=== PATIENT | male | born 1930 | race Caucasian/White ===

== ENCOUNTER 2017-02-15 22:35 | Observation (INO) | payer MEDICARE ==
[2017-02-15 23:02] LABS: #Eosinphils 0.7 thou/uL (0.0-0.7); #Lymphocytes 2.4 thou/uL (1.20-3.40); #Monocytes 0.6 thou/uL (0.11-0.59); #Neutrophils 2.6 thou/uL (1.40-6.50); %Basophils 0.3 % (0.0-1.0); %Eosinophils 11.3 % (0.0-10.0); %Lymphocytes 37.8 % (21.0-51.0); %Monocytes 9.4 % (0.0-10.0); Hematocrit 35.4 % (42.0-52.0); Mean Platelet Volume 7.8 fL (7.4-10.4); Red Blood Cell (RBC) Count 3.82 mill/uL (4.70-6.10); White Blood Cell (WBC) Count 6.3 thou/uL (4.8-10.8)
--- NOTE | 2017-02-15 23:13 | RAD ---
CHEST ONE VIEW: 02/15/17 HISTORY: Weakness. Syncope. COMPARISON: 09/21/15. FINDINGS: The cardiac silhouette is magnified by projection. Pulmonary vasculature is unremarkable. Mediastinu m is midline with aortic calcification and postoperative changes. There is no lobar consolidation or evidence of pneumothorax. The telemetry monitor leads overlie the chest. IMPRESSION: 1. COPD. 2. Atherosclerosis. 3. Chronic type findings appear stable. POS: [facility]
[2017-02-15 23:19] LABS: ALT (SGPT) 9 U/L (8-55); AST (SGOT) 16 U/L (5-34); Alkaline Phosphatase 89 U/L (40-150); Anion Gap 14 mmol/L (10-20); BUN (Urea Nitrogen) 27 mg/dL (8.4-25.7); Bilirubin, Total 0.8 mg/dL (0.2-1.2); Calc. Creatinine Clearance 0 mL/min (70-130); Calcium 9.2 mg/dL (7.8-10.44); Carbon Dioxide 24 mmol/L (23-31); Chloride 105 mmol/L (98-107); Estimated GFR-MDRD 47; Globulin 2.5 g/dL (2.4-3.5); Protein, Total 6.2 g/dL (5.8-8.1)
[2017-02-15 23:22] LABS: Troponin I 0.017 ng/mL (< 0.028)
[2017-02-16] MEDS ORDERED: Sodium Chloride 0.9% 1,000 ML IV SCH ×3 (01:04→23:30)
[2017-02-16 01:48] VITALS: BMI 19.1
[2017-02-16 02:34] LABS: Troponin I 0.028 ng/mL (< 0.028)
[2017-02-16 06:01] LABS: Troponin I 0.016 ng/mL (< 0.028)
[2017-02-16] MEDS: Ramipril 5 MG CAP PO SCH (09:39)
[2017-02-16] MEDS: traMADol HCl 50 MG TAB PO PRN (10:19)
--- NOTE | 2017-02-16 10:39 | RAD ---
RIGHT SHOULDER THREE VIEWS: History: Right shoulder pain. FINDINGS: There are moderate to severe degenerative changes at the right shoulder. Prominent osteophytes are s een from the humeral head. Mild loss of humeral head contour. There is narrowing of the glenohumeral joint. Osteophytes also arise from the glenoid. Inferior osteophytes are seen at the AC joint. No a cute fracture identified. 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 POS: [facility]
--- NOTE | 2017-02-16 12:36 | HP ---
REASON FOR ADMISSION: Syncope. HISTORY OF PRESENT ILLNESS: An 86-year-old gentleman who has a history of multiple medical problems including coronary artery disease with bypass in the past. He use to see Dr. Us; however, he s tates he has not seen a doctor in several, several years. Also, has a history of hypertension, hype rlipidemia, COPD, and noncompliance. Roughly 2 weeks ago he was walking around his porch and states he got dizzy and fell. He did injure his right shoulder; however, did not seek medical attention at that time. Yesterday after being outside for a little bit he came inside and was going to do turn the TV on, he felt dizzy and helped himself to the chair \\\\"as he felt like he was going to pass out\\\\". He debra es any chest or arm pain with that. He also denies any PND, orthopnea or palpitations. EMS was sum moned to the scene and once they were helping him to the stretcher, he did pass out according to the family member. Currently, the patient is hemodynamically stable, in no acute distress, but was adm itted for further evaluation and treatment. PAST MEDICAL HISTORY: As above. ALLERGIES: None. MEDICATIONS: 1. Coreg 12.5. 2. Atorvastatin 40 mg every day. 3. Ramipril 5 mg every day. 4. Aspirin 81 mg every day. 5. Coreg, dose unknown. SOCIAL HISTORY: He smokes cigars, does not drink alcohol. FAMILY HISTORY: Noncontributory. REVIEW OF SYSTEMS: GENERAL: Admits to weakness, fatigue, no fever or chills. HEENT: No diplopia, amaurosis fugax, tinnitus, sore throat or hoarseness. CARDIOVASCULAR: No chest, arm or back pain. PULMONARY: He does have COPD, but no cough or hemoptysis. GASTROINTESTINAL: No GI bleed, constipation, diarrhea. GENITOURINARY: No dysuria, nocturia, oliguria or polyuria. ENDOCRINE: No polyphagia, polydipsia or heat or cold intolerance. MUSCULOSKELETAL: Admits to arthralgias. No lupus or myopathy. He also has right shoulder pain. NEUROLOGIC: No history of TIA or seizure. All systems are negative. PHYSICAL EXAMINATION: GENERAL: This is a pleasant gentleman who appears to be in no acute distress. His blood pressure i s 140/70, pulse 60, respiration rate 18, he is afebrile. NECK: Supple with no increased JVP or carotid bruit. Carotid had good upstroke with no thyromegaly . COR: Regular rate and rhythm. No murmur, S3, S4, or thrills. CHEST: Symmetrical. Clear to auscultation and percussion. ABDOMEN: Soft, nontender with normoactive bowel sounds. There was no bruit or organomegaly. EXTREMITIES: No edema or cyanosis. Had palpable pedal pulses. SKIN: There is no evidence of ulcer, lesion, or rash. NEUROLOGIC: He is awake, alert, and oriented to person, place, and time. LABORATORY DATA: Showed a white blood cell of 6.3, H\\T\\H 11.4 and 35.4, platelet 181, BUN 27, creat inine 1.44. Cardiac enzymes are unremarkable. EKG sinus rhythm with first degree AV block. ASSESSMENT: 1. Syncope. 2. History of coronary artery disease with bypass in the past. 3. Hypertension. 4. Hyperlipidemia. 5. Chronic obstructive pulmonary disease. 6. Right shoulder pain. PLAN: I spoke with the patient at length and we will order a complete echocardiogram and carotid ul trasound and Persantine stress test. We will also order a right shoulder x-ray. We will check a CM P tomorrow morning and a TSH, lipid profile, and UA, C\\T\\S. We will also resume his medications, al so consult Cardiology regarding syncope. The patient verbalized understanding and all questions ans wered to his satisfaction.
[2017-02-16] MEDS ORDERED: Regadenoson 0.4 MG/5 ML SYRINGE ONE (16:16)
--- NOTE | 2017-02-16 16:41 | NM ---
MYOCARDIAL PERFUSION SCAN: 02/16/17 Patient given 9 millicuries of technetium sestamibi for rest imaging and 30 millicuries for stress i maging. Patient was stressed with Lexiscan protocol. Patient obtained 51% of maximum age predicted heart rat e. Left ventricle was imaged with SPECT imaging with CT attenuation. There is a fixed defect involving the inferolateral wall of the left ventricle. No evidence of reversible ischemia. Wall motion shows global hypokinesis with some dyskinesis in the lateral wall. Ejection fraction rec orded at 42%. IMPRESSION: 1. Fixed defect involving the inferolateral wall. 2. No evidence of reversible ischemia. 3. Decreased ejection fraction. POS: [facility]
[2017-02-16] MEDS ORDERED: Atorvastatin Calcium 40 MG TAB PO SCH (21:00)
[2017-02-16] MEDS ORDERED: Communication Order-Pharmacy FS SCH (22:15)
--- NOTE | 2017-02-16 23:48 | CON ---
DATE OF CONSULTATION: 02/16/2017 REASON FOR CONSULTATION: Syncope and abnormal stress test. HISTORY OF PRESENT ILLNESS: Mr. Robison is an 86-year-old white gentleman who comes to the hospital for evaluation of syncopal spell. He was at home, he stood up, he felt lightheaded and he has been doing this several times in the last few days, he thinks it is because of really hot outside and he just sits outside in the heat and he does not really consume much fluid. He has a significant hist ory of coronary artery disease, had a bypass about 10 years ago, this was done at [facility]. He would see Dr. Us at that time. 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 His son is in the room. 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 He forgets lot of the things, but he is living with his kids . Yesterday, he was very close to passing out after standing up turned to the TV on. PAST MEDICAL HISTORY: 1. Chronic obstructive pulmonary disease. 2. Hyperlipidemia. 3. Hypertension. 4. Noncompliance. 5. Coronary artery disease. PAST SURGICAL HISTORY: Coronary artery bypass grafting x5 about 10 years ago. OUTPATIENT MEDICATIONS: 1. Coreg 12.5 mg p.o. b.i.d. 2. Atorvastatin 40 mg a day. 3. Ramipril 5 mg a day. 4. Aspirin 81 mg a day. SOCIAL HISTORY: Smokes cigars. No alcohol or drugs. FAMILY HISTORY: Noncontributory. REVIEW OF SYSTEMS: A 12-point review of systems was done and is all negative unless stated in the h istory of present illness. PHYSICAL EXAMINATION: VITAL SIGNS: Temperature 97.6, pulse 62, respiratory rate 16, satting 94% on room air, blood pressu re 161/74, but it was 122/56 here on admission. GENERAL: Awake and alert. He is oriented to person and place, difficult to time, in no distress. HEENT: Normocephalic, atraumatic. NECK: Supple. LUNGS: Clear. CARDIOVASCULAR: S1, S2, no S3, S4. Grade 2/6 systolic murmur in the right upper sternal border. ABDOMEN: Soft. Positive bowel sounds. EXTREMITIES: No edema. SKIN: Warm and dry. LABORATORY DATA: Laboratory work was reviewed. White count of 6, hemoglobin of 11, hematocrit of 3 5, and platelet count of 181. Chemistries were reviewed. BUN of 27, creatinine 1.44. Troponin is negative x3. Triglycerides of 64, cholesterol 148, LDL of 82, HDL of 53. TSH was normal. EKG was reviewed. Nuclear stress test showed reduced LV function, EF of 42%. There is inferolateral fixed findings cervantes ggestive of scar, but no reversible ischemia. There is hypokinesis and dyskinesis of the lateral wall. ASSESSMENT AND PLAN: 1. Syncope: Most likely related to not ingesting sufficient fluid in the setting of him being outs gissell in the heat most of the day. We may need to cut back some of his blood pressure medicines at th is time. We will just recommend he remain well hydrated. 2. Ischemic cardiomyopathy: Ejection fraction of 42%. It is unclear whether this is a new finding or an old finding. Given the fact that his bypass about 10 years old, which is usually the time he get from venous vein grafts. We spoke with him and his son about possibly doing a heart catheteriz ation for further risk stratification and Mr. Robison would like his son to make a decision. I spok e with him and he would like him to have the heart catheterization just to evaluate if this is any i ssue with his vein grafts. We will plan on doing this tomorrow. We spoke at length about the risks and benefits of the procedure. The risks include, but not limited to stroke, CT, , bleeding a nd need for blood transfusion, need for emergency bypass surgery, need for surgical repair of the ve ssels, limb loss, organ loss. The patient understands and verbalizes understanding of this. He agr ees to proceed. We also spoke about contrast reactions, kidney failure from the contrast both agree d to proceed. He says that he is very good taking medications. He has drug eluting stent with a vein graft and ba re metal stent to the jena coronary. Further recommendations results of coronary angiogram.
[2017-02-17] MEDS: Ramipril 5 MG CAP PO SCH (04:59)
[2017-02-17 05:36] LABS: ALT (SGPT) 7 U/L (8-55); AST (SGOT) 14 U/L (5-34); Alkaline Phosphatase 71 U/L (40-150); Anion Gap 9 mmol/L (10-20); BUN (Urea Nitrogen) 16 mg/dL (8.4-25.7); Bilirubin, Total 0.9 mg/dL (0.2-1.2); Calc. Creatinine Clearance 45 mL/min (70-130); Calcium 8.6 mg/dL (7.8-10.44); Carbon Dioxide 26 mmol/L (23-31); Chloride 108 mmol/L (98-107); Estimated GFR-MDRD 64; Protein, Total 5.1 g/dL (5.8-8.1)
[2017-02-17 08:07] VITALS: TEMP 97.8
[2017-02-17 08:13] LABS: Bilirubin Negative (Negative); Blood, Urine Negative (Negative); Glucose, Urine (Dipstick) Negative (Negative); Ketone, Urine Negative (Negative); Nitrite Negative (Negative); Protein, Urine (Dipstick) Negative (Neg-Trace)
[2017-02-17] MEDS: traMADol HCl 50 MG TAB PO PRN (09:26)
[2017-02-17] MEDS ORDERED: Fentanyl 100 MCG/2 ML VIAL ONE (10:10)
--- NOTE | 2017-02-17 10:46 | PDOC.PN ---
- Subjective Encounter Start Date: 02/17/17 Encounter Start Time: 07:30 Subjective: is amb in room, no chest pain or sob or palp -: feels better, is npo for cath - Objective MAR Reviewed: Yes Vital Signs & Weight: Vital Signs (12 hours) Temp Pulse Resp BP BP Pulse Ox 02/17/17 08:00 97.8 F 55 L 16 135/67 92 L 02/17/17 04:59 155/79 H 02/17/17 04:20 60 18 155/79 H 92 L 02/16/17 23:11 97.5 F L 59 L 18 145/71 H 92 L Weight Weight 140 lb 9.6 oz I&O: 02/16/17 02/17/17 02/18/17 06:59 06:59 06:59 Intake Total 350 785 Output Total 650 350 650 Balance -300 435 -650 Result Diagrams: 02/15/17 22:40 02/17/17 04:19 Phys Exam - Physical Examination HEENT: PERRLA, moist MMs Neck: no JVD, supple Respiratory: no wheezing, no rales rhonchi+ Cardiovascular: RRR, no significant murmur Gastrointestinal: soft, non-tender, positive bowel sounds Musculoskeletal: no edema, pulses present Neurological: non-focal, moves all 4 limbs Psychiatric: A&O x 3 Dx/Plan (1) Syncope Code(s): R55 - SYNCOPE AND COLLAPSE Status: Acute Qualifiers: Syncope type: unspecified Qualified Code(s): R55 - Syncope and collapse (2) COPD (chronic obstructive pulmonary disease) Status: Chronic Qualifiers: COPD type: chronic bronchitis Chronic bronchitis type: unspecified Qualified Code(s): J42 - Unspecified chronic bronchitis (3) CAD (coronary artery disease) Code(s): I25.10 - ATHSCL HEART DISEASE OF [place] CORONARY ARTERY W/O ANG PCTRS Status: Chronic Qualifiers: Coronary Disease-Associated Artery/Lesion type: bypass graft [place] vs. transplanted heart: [place] heart Associated angina: without angina Qualified Code(s): I25.810 - Atherosclerosis of coronary artery bypass graft(s) without angina pectoris (4) Dyslipidemia Code(s): E78.5 - HYPERLIPIDEMIA, UNSPECIFIED Status: Chronic - Plan for cath today -: may dc home if cath is normal per cardio advice -: still chews cigars with chronic cough from copd -: outpt ortho referal for shoulder arthritis * . Review of Systems - Medications/Allergies Allergies/Adverse Reactions: Allergies Allergy/AdvReac Type Severity Reaction Status Date / Time No Known Allergies Allergy Verified 04/09/15 09:42 Medications: Current Medications Aspirin (Aspirin Chewable) 81 mg PO DAILY [facility] Last Admin: 02/17/17 05:00 Dose: 81 mg Atorvastatin Calcium (Lipitor) 40 mg PO HS [facility] Last Admin: 02/16/17 21:10 Dose: 40 mg Miscellaneous Information (Communication Order-Pharmacy) 0 each FS ONE [facility]IMILIANO Stop: 02/17/17 12:00 Ramipril (Altace) 5 mg PO DAILY [facility] Last Admin: 02/17/17 04:59 Dose: 5 mg Sodium Chloride (Flush - Normal Saline) 10 ml IVF Q12HR [facility] Last Admin: 02/17/17 09:27 Dose: 10 ml Sodium Chloride (Flush - Normal Saline) 10 ml IVF PRN PRN PRN Reason: Saline Flush Tramadol HCl (Ultram) 50 mg PO TIDPRN PRN PRN Reason: Pain Last Admin: 02/17/17 09:26 Dose: 50 mg
[2017-02-17] MEDS ORDERED: Acetaminophen/Codeine 30-300mg Tablet PO PRN (10:49)
[2017-02-17] MEDS ORDERED: Nitroglycerin 0.4 MG TAB (25 Tab Bottle) SL PRN (10:49)
[2017-02-17] MEDS ORDERED: Sodium Chloride 0.9% 1,000 ML IV SCH (11:00)
[2017-02-17] MEDS ORDERED: Sodium Chloride 0.9% 200 ML IV SCH (11:00)
[2017-02-17 12:17] VITALS: BP 137/70
[2017-02-17] MEDS ORDERED: Iopamidol 370 76% 100 ML VIAL ONE (14:03)
--- NOTE | 2017-02-18 01:01 | DIS ---
DATE OF ADMISSION: 02/16/2017 DATE OF DISCHARGE: 02/17/2017 DISCHARGE DISPOSITION: To home. PRIMARY DISCHARGE DIAGNOSIS: Syncope, resolved. SECONDARY DISCHARGE DIAGNOSES: History of coronary artery disease with prior coronary artery bypass graft, chronic obstructive pulmonary disease, dyslipidemia. PROCEDURES DONE DURING HOSPITALIZATION: The patient has had a nuclear stress test done, which showed fixed defect involving inferolateral wall. There was no evidence of reversible ischemia, ejection fraction was decreased at 42% and wall motion showed global hypokinesis with some dyskinesis in the lateral wall. He has had cardiac catheterization done this morning by Dr. Ho, which showed no new flow limiting disease. The official report is pending at the time of this dictation. H and H 11 and 35, platelet count 181. Discharge BUN and creatinine are 16 and 1.0. Total cholesterol 148, triglycerides 64, LDL 82 , HDL was 53. Troponin x3 was negative. DISCHARGE MEDICATIONS: The patient is to continue all his home medications as before, aspirin 81 mg p.o. at bedtime, Lipitor 40 mg p.o. at bedtime, Coreg likely extended release 25 mg at bedtime, ramipril 10 mg p.o. at bedtime. ALLERGIES: No known drug allergies. DISCHARGE PLAN: The patient is to follow up with Dr. Adal Nye in 1 week. BRIEF COURSE DURING HOSPITALIZATION: The patient initially got admitted on the after he nearly passed out at home. In view of this history, he was placed under observation on telemetry. He has had a complete cardiac workup done in view of his prior history of CABG. Nuclear stress test was negative for any reversible ischemia but showed wall motion abnormalities with decreased ejection fraction. He has had consultation with Dr. Ho. He subsequently has had cardiac catheterization done, the official reports are pending at present. He has been cleared by Dr. Ho for discharge. He needs to follow up with Dr. Adal Nye in 1 week. We will follow up on the official cardiac catheterization results when it is available. He needs to continue all his home medications as before. He was counseled with regard to chewing tobacco. The patient also needs outpatient orthopedic referral for his shoulder osteoarthritis. Please see a [id number] documentation on [employer] for the day of discharge. [facility] CORNELL MEDICAL CENTERLuis Enrique
== END 2017-02-17 14:33 | disposition home or self-care (01) ==
LOC: ERS 22:35 → 2SW 02-16 00:15
PROVIDERS: ADMIT Specialist; ATTEND Specialist
DX: R55 Syncope and collapse (principal); I10 Essential (primary) hypertension; I25.10 Atherosclerotic heart disease of native coronary artery without angina pectoris; J44.9 Chronic obstructive pulmonary disease, unspecified; E78.5 Hyperlipidemia, unspecified; F17.210 Nicotine dependence, cigarettes, uncomplicated; Z79.82 Long term (current) use of aspirin; Z79.899 Other long term (current) drug therapy; Z95.1 Presence of aortocoronary bypass graft; Z91.19 Patient's noncompliance with other medical treatment and regimen
CPT/HCPCS: 71010; 73030; 78452; 80053 ×2; 80061; 81003; 82553; 84443; 84484 ×3; 85025; 87077; 87086; 87186; 93005; 93017; 93306; 93459; 93798; 96360; 96361 ×2; 99285; A9500; C1760; C1769; G0378; 36415; 99152; 99153; A4216; J1644; J2785; J3010

== ENCOUNTER 2017-03-21 10:49 | Inpatient (IN) | payer MEDICARE ==
[2017-03-21 11:38] LABS: #Eosinphils 0.3 thou/uL (0.0-0.7); #Lymphocytes 1.3 thou/uL (1.20-3.40); #Monocytes 0.3 thou/uL (0.11-0.59); #Neutrophils 3.7 thou/uL (1.40-6.50); %Basophils 0.7 % (0.0-1.0); %Eosinophils 4.5 % (0.0-10.0); %Lymphocytes 23.7 % (21.0-51.0); %Monocytes 5.5 % (0.0-10.0); Hematocrit 37.9 % (42.0-52.0); Mean Platelet Volume 7.3 fL (7.4-10.4); Red Blood Cell (RBC) Count 4.07 mill/uL (4.70-6.10); White Blood Cell (WBC) Count 5.6 thou/uL (4.8-10.8)
--- NOTE | 2017-03-21 11:42 | RAD ---
FRONTAL VIEW CHEST: Date: 03/21/17 COMPARISON: 02/15/17. INDICATION: Syncope. FINDINGS: Cardiomediastinal silhouette is stable in size. No new lobar consolidation. Post sternotomy change w ith vascular calcification again seen. Leads overlie the chest limiting detail. IMPRESSION: No focal consolidation. POS: [facility]
[2017-03-21 12:05] LABS: ALT (SGPT) 11 U/L (8-55); AST (SGOT) 16 U/L (5-34); Alkaline Phosphatase 73 U/L (40-150); Anion Gap 12 mmol/L (10-20); BUN (Urea Nitrogen) 27 mg/dL (8.4-25.7); Bilirubin, Total 0.9 mg/dL (0.2-1.2); CK (CPK) 74 U/L (30-200); Calc. Creatinine Clearance 0 mL/min (70-130); Calcium 8.8 mg/dL (7.8-10.44); Carbon Dioxide 24 mmol/L (23-31); Chloride 109 mmol/L (98-107); Estimated GFR-MDRD 63; Globulin 2.3 g/dL (2.4-3.5); Protein, Total 5.7 g/dL (5.8-8.1)
[2017-03-21 12:14] LABS: Troponin I 0.018 ng/mL (< 0.028)
[2017-03-21] MEDS ORDERED: Acetaminophen 500 MG TAB ONE (12:16)
[2017-03-21 13:47] LABS: Bilirubin Negative (Negative); Blood, Urine Negative (Negative); Glucose, Urine (Dipstick) Negative (Negative); Ketone, Urine Negative (Negative); Nitrite Negative (Negative); Protein, Urine (Dipstick) Negative (Neg-Trace)
--- NOTE | 2017-03-21 13:52 | CT ---
CT HEAD WITHOUT IV CONTRAST: 03/21/2017 HISTORY: Altered mental status. Patient unresponsive for about 10 minutes after a syncopal episode. COMPARISON: None available. FINDINGS: There is decreased attenuation of the periventricular white matter, which is nonspecific but likely reflective of chronic small vessel ischemic changes. There is no evidence of an acute cortical infa rction, hemorrhage, mass effect, or midline shift. There are low density areas seen in each cerebel lar hemisphere, related to remote infarctions. There is mild diffuse cerebral volume loss. Ventricular system is normal in size, shape, and positi on for the degree of sulcal atrophy. The visualized paranasal sinuses and mastoid air cells are clear. The calvarial structures are inta ct without evidence of a fracture. Prominent vascular calcifications are seen in the distal vertebr al arteries and in the carotid siphons. IMPRESSION: 1. No acute intracranial abnormalities demonstrated. 2. Chronic small vessel ischemic changes and cerebral volume loss. 3. 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 POS: [facility]
[2017-03-21] MEDS ORDERED: Ondansetron ODT 4 MG TAB SL PRN (15:23)
[2017-03-21] MEDS ORDERED: Ondansetron HCl/PF 4 MG/2 ML Vial IVP PRN (15:23)
[2017-03-21] MEDS ORDERED: Acetaminophen 325 MG TAB PO PRN (15:23)
[2017-03-21 15:26] LABS: Troponin I 0.024 ng/mL (< 0.028)
[2017-03-21] MEDS ORDERED: Carvedilol 25 MG TAB PO SCH (15:30)
[2017-03-21] MEDS: Sodium Chloride 0.9% 1,000 ML IV SCH (17:13)
[2017-03-21 18:00] LABS: Troponin I Less than 0.010 ng/mL (< 0.028)
--- NOTE | 2017-03-21 20:31 | HP ---
REASON FOR ADMISSION: Syncope. HISTORY OF PRESENT ILLNESS: This is an 86-year-old gentleman with a history of unexplained syncope, presents to the hospital after he felt a dizzy and felt like he was going to pass out. His son cau ght him and he lost consciousness for 10 minutes. His son works at [employer] and said w hen he came to, he acted as if he had a seizure only because of his postictal state. He had no loss of bowel or bladder. He had no tremors and he had no other warning besides the dizziness before he passed out. He was last in the hospital for a month ago with the same episode. At that time, he underwent a car diac catheterization which at that time, no percutaneous intervention was warranted. Once upon EMS was summoned to the scene and once he came to the hospital, he had 2 more episodes of syncope. His blood pressure remained normal during these episodes. He was found to be in atrial fibrillation cur rently by EKG and there is no history of this according to his old record. He denies any chest, arm or back pain. He also denies any PND, orthopnea or palpitations. PAST MEDICAL HISTORY: 1. COPD. 2. Hypertension. 3. Hyperlipidemia. 4. Noncompliance. PAST SURGICAL HISTORY: Coronary artery disease with surgery. MEDICATIONS: 1. Lipitor 40 mg a day. 2. Coreg 12.5 mg every day. 3. Aspirin 81 mg a day. SOCIAL HISTORY: He smokes cigars. He does not drink. FAMILY HISTORY: Noncontributory. REVIEW OF SYSTEMS: GENERAL: No weight gain or loss, weakness, fatigue, fever or chills. HEENT: No diplopia, amaurosis fugax, tinnitus, sore throat or hoarseness. CARDIOVASCULAR: No chest, arm or back pain. PULMONARY: No PE, cough or hemoptysis. GASTROINTESTINAL: No GI bleed, constipation or diarrhea. GENITOURINARY: No dysuria, nocturia, oliguria or polyuria. ENDOCRINE: No polyphagia, polydipsia or heat or cold intolerance. MUSCULOSKELETAL: Admits to arthralgia. No lupus or myopathy. NEURO: No history of transient ischemic attack or seizures. All systems are negative. PHYSICAL EXAMINATION: GENERAL: This is a pleasant gentleman who appears to be in no acute distress. VITAL SIGNS: Blood pressure 140/70, pulse 80, respirations 20. He is afebrile. NECK: Supple with no increased JVP or carotid bruit. Carotid had good upstroke with no thyromegaly . COR: Irregularly irregular with variable first and second heart sounds normal. No murmur, S3, S4, or thrills. CHEST: Symmetrical. Clear to auscultation and percussion. ABDOMEN: Soft, nontender with normoactive bowel sounds. No bruit or organomegaly. EXTREMITIES: No edema or cyanosis. Palpable pedal pulses. SKIN: There is no evidence of ulcer, lesion, or rash. NEUROLOGIC: He is awake, alert, and oriented to person, place, and time. LABORATORY DATA: CBC is normal. CMP is normal. Cardiac enzymes normal. UA normal. CT of the hea d unremarkable. ASSESSMENT: 1. Unexplained syncope. 2. History of coronary artery disease with bypass in the past. 3. Hypertension. 4. New onset atrial fibrillation. PLAN: 1. The patient will be admitted where I will resume his home medications. 2. We will ask Neurology to see for his seizures. 3. All questions answered to patient's son and patient's satisfaction.
[2017-03-21] MEDS ORDERED: Atorvastatin Calcium 10 MG TAB PO SCH (21:00)
[2017-03-21 21:06] VITALS: BMI 16.8
[2017-03-22] MEDS: Sodium Chloride 0.9% 1,000 ML IV SCH (00:56)
[2017-03-22] MEDS ORDERED: FLU VACC TS2017-18 (>65YR) 0.5 ML SYRINGE IM ONE (09:00)
[2017-03-22] MEDS ORDERED: Carvedilol 3.125 MG TAB PO SCH (09:00)
[2017-03-22 10:17] LABS: Troponin I 0.011 ng/mL (< 0.028)
[2017-03-22] MEDS ORDERED: Acetaminophen 325 MG TAB PO PRN (13:22)
[2017-03-22] MEDS: Lorazepam 0.5 MG TAB PO PRN ×2 (13:39→20:59)
--- NOTE | 2017-03-22 16:17 | EEG ---
Referring Physician: SCOTT HDZ EEG # [ [id number] TEST TYPE: ROUTINE PORTABLE INPATIENT REPORT: AN EEG USING THE INTERNATIONAL TEN-TWENTY SYSTEM OF ELECTRODE PLACEMENT WAS PERFORMED. The best waking background is a 8 hertz alpha frequency. The patient has some drowsiness during the study, but no sleep was seen. Photic stimulation was unremarkable. No epileptiform features were present. IMPRESSION: THIS IS A NORMAL AWAKE AND DROWSY EEG FOR AGE. 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
--- NOTE | 2017-03-22 17:37 | MRI ---
EXAM: BRAIN MRI WITHOUT CONTRAST 03/22/17 HISTORY: Altered mental status. COMPARISON: None. TECHNIQUE: Brain MRI is performed without contrast. Multisequential, multiplanar imaging is performed. FINDINGS: No hemorrhage on the axial gradient echo sequence. There are T2 and FLAIR white matter hyperintensit ies due to chronic small vessel ischemic change. Additional white matter hyperintensities on the axi al T2 and FLAIR sequence involving the left frontal and right parietal lobe near the vertex may repr esent areas of gliotic change. There is no parenchymal, mass effect or midline shift. Brain volume i s age appropriate. Age appropriate atrophy. With exception of the areas of gliosis, lombardi-white matte r differentiation appears to be adequately preserved. Central arterial flow voids are maintained. Absent restricted diffusion. Adequate aeration of the si nuses and mastoid air cells. IMPRESSION: 1. Absent restricted diffusion. No acute infarct. 2. Age appropriate atrophy. 3. Gliotic changes and chronic small vessel ischemic changes. POS: [facility]
--- NOTE | 2017-03-22 20:09 | CON ---
DATE OF CONSULTATION: 03/22/2017 NEUROLOGY CONSULTATION CONSULTING PHYSICIAN: Dr. Adal Nye. IMPRESSION: Possible subclinical seizure. PLAN: 1. Dilantin 300 mg per day. 2. Office followup. HISTORY OF PRESENT ILLNESS: Mr. Robison is an 86-year-old gentleman with known history of coronary artery disease. He was admitted again for blacked out. He was admitted a month ago and had a cardi ac workup including a catheterization, which was unremarkable. No arrhythmias were captured during his hospitalization. He had a recurrent event in front of his son. He collapsed to the floor limp. His color did appear somewhat icteric. He was diaphoretic when he checked for pulse. He found th at it was a bit slow probably in the 40s. He was unconscious at least 10 minutes. He awoke feeling lightheaded. He was transferred to the emergency room for evaluation. He had 2 further episodes i n the ER, lasting less than a minute or more, both of these were captured on monitoring and there wa s no change in his vital signs. He had an EEG done today, which was unremarkable as prior imaging o f his brain was also only consistent with age-related changes. Patient did not have any nausea, amaris st pain, headache or dizziness following the event. PAST MEDICAL HISTORY: Coronary artery disease. FAMILY HISTORY: Noncontributory. SOCIAL HISTORY: No tobacco or alcohol use. REVIEW OF SYSTEMS: Otherwise negative. MEDICATION LIST: Reviewed. PHYSICAL EXAMINATION: GENERAL: A thin elderly gentleman in no distress. VITAL SIGNS: Have been stable. He is afebrile with sinus rhythm. NECK: Supple, no lymphadenopathy noted. HEENT: Unremarkable. EXTREMITIES: No cyanosis, clubbing or edema. NEUROLOGIC: He is alert and appropriate. His speech is fluent and clear. His exam is nonfocal. H e was not having any abnormal movements. 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
[2017-03-22] MEDS: Atorvastatin Calcium 10 MG TAB PO SCH (20:58)
--- NOTE | 2017-03-23 05:43 | CON ---
DATE OF CONSULTATION: 03/22/2017 INDICATION FOR CONSULTATION: An 86-year-old gentleman with syncope. HISTORY OF PRESENT ILLNESS: This is a very pleasant 86-year-old gentleman who was seen last month a nd had a cardiac catheterization by my colleague, Dr. Ho, at which time, he had also had some pr oblems with brief presyncopal episodes. During the cardiac catheterization, he was found to have so me left main aneurysmal formation, but no critical flow-limiting disease was noted. He had a HALL t o the left anterior descending artery, saphenous vein graft to the left circumflex, and also to the distal, I believe, right coronary artery. He had some collateral filling also from the left anterio r descending artery to the right coronary artery. He had a normal ejection fraction. The distal in ferior wall was akinetic. This gentleman has had a syncopal episode in the past, and again yesterda y, he had another syncopal episode and was sent to the hospital. When he arrived in the hospital, a pparently, he had 2 more episodes of syncope according to the son. At that time, he was lying down on the stretcher and had 2 episodes of syncope. The heart rate and blood pressures have remained st able, and according to the son, nothing else was changed , but he was out for several minutes to vicenta f an hour and then resumed his normal mentation. He is an elderly gentleman, but has had no previou s strokes or CVAs in the past and there is no history of seizure disorders. Also, the son admits at home as soon as the patient gets up too quickly, he may feel lightheaded or dizzy, but if he sits b ack down usually, the symptoms resolve. Yesterday, however, he had been outside and when he came in and he was not feeling very well and then the son came home and since the patient came back in, he apparently had another syncopal episode. PAST MEDICAL HISTORY: Significant for coronary artery disease and bypass surgery. He has a history of noncompliance. He has a history of COPD. SOCIAL HISTORY: He smoked in the past. He is . He has children who are alive and well. FAMILY HISTORY: Noncontributory at this time. ALLERGIES: None. MEDICATIONS PRIOR TO ADMISSION: Include Coreg 6.25 mg, he takes 25 mg in the evening. He is on judy ipril 5 mg at bedtime, atorvastatin 40 mg a day, aspirin, and amantadine. In the hospital, he is ta donnie aspirin, Lipitor 10 mg q.p.m., his beta-edenilson apparently has been held. His heart rate is st ill in the 50s to 70s, shows a sinus rhythm. He did have one episode of 4 beats of nonsustained elaine tricular tachycardia. REVIEW OF SYSTEMS: A twelve-point review of systems is unremarkable except what was noted in the hi story of present illness. ALLERGIES: None. PHYSICAL EXAMINATION: GENERAL: Reveals an elderly gentleman. VITAL SIGNS: Blood pressure 151/77, earlier was 115/61, heart rates in the 50s-70s, shows a sinus r hythm. There were no significant arrhythmias except for the one episode of nonsustained ventricular tachycardia. There was some mention perhaps in the emergency room the patient may have atrial fibr illation; however, the baseline EKG is so irregular that one cannot determine if it is artifact and one cannot determine whether or not this is truly atrial fibrillation or not. I have not seen any a trial fibrillation while on telemetry. He is afebrile, respiratory rate is 18. HEENT: Shows the head to be normocephalic and atraumatic. Carotid pulses are present without any s ignificant bruits. CHEST: Clear to auscultation without rales, rhonchi, or wheezing. CARDIOVASCULAR: At this time reveals a regular rhythm, somewhat bradycardic, but no significant mur murs, heaves, thrills, bruits, or rubs. ABDOMEN: Soft and nontender with positive bowel sounds. No organomegaly or masses noted. Femoral pulses are present. EXTREMITIES: Showed no clubbing, cyanosis, or edema. Pedal pulses are difficult to palpate. NEUROLOGIC: The patient does not have any significant gross abnormalities. He is able to stand. SKIN: Warm and dry. IMAGING: EKG shows a sinus bradycardia with a first degree heart block. His past medical history i s also noted for COPD, noncompliance, and the bypass surgery. IMPRESSION: 1. Syncopal episode of uncertain etiology, somewhat suspicious for neurologic problems since the issac storey was being monitored in the emergency room and the EKG did not change as far as rhythms nor blo od pressure dropped according to the family and he continued to have a syncopal episode. He is sche duled for an MRI later today and further evaluation would be based on the MRI findings. The only ot her option at this time would be possibly to implant an implantable loop recorder to monitor for any other arrhythmias at home, but it is quite possible this at home could be orthostatic hypotension. Apparently yesterday there was no evidence as to why he passed out in the emergency room. 2. Coronary artery disease, this appears to be stable. 3. History of chronic obstructive pulmonary disease. This also appears to be stable at this time. Further recommendations will depend on the results of the MRI.
--- NOTE | 2017-03-23 08:14 | PRG ---
DATE OF SERVICE: 03/23/2017 SUBJECTIVE: The patient became quite agitated last night according to the son. The patient does wa nt to go home. The son does not think he has seizures as he has witnessed these episodes several ti mes. The patient denies any complaints this morning. PHYSICAL EXAMINATION: VITAL SIGNS: Blood pressure 140/80, pulse 55, respiration 20. He is afebrile. NECK: Supple with no increased JVP or carotid bruit. Carotid had good upstroke with no thyromegaly . COR: Regular rate and rhythm. CHEST: Symmetrical. Clear to auscultation and percussion. ABDOMEN: Soft, nontender with normoactive bowel sounds. No bruit or organomegaly. EXTREMITIES: No edema or cyanosis. He had palpable pedal pulses. SKIN: There is no evidence of ulceration lesion, or rash. NEUROLOGIC: He is awake, alert, and oriented to person, place, and time. He had a normal EEG. ASSESSMENT: 1. Syncope, questionable etiology. 2. Possible subclinical seizures. 3. Dementia. 4. History of coronary artery disease with bypass. PLAN: I spoke with the son and patient at length. The son says he really wants to take him home to day; however, I said that he does need to get clearance from Cardiology and Neurology before that de cision is made. I discussed this case with Dr. Adal Nye. All questions were answered to the p atient's and sons satisfaction.
[2017-03-23] MEDS: Lorazepam 0.5 MG TAB PO PRN ×2 (13:31→20:56)
--- NOTE | 2017-03-23 16:45 | PDOC.CTH ---
Cardiology Progress Note - Subjective He has not had any more episodes of syncope or seizures. He denies any chest pain, tightness ,pressure, SOB. - Objective Vital Signs Temp Pulse Resp BP BP Pulse Ox 03/23/17 11:15 96.9 F L 80 18 113/67 96 03/23/17 07:25 97.9 F 76 18 136/81 95 03/23/17 06:46 97.9 F 65 20 148/82 H 96 Admit Weight 118 lb 6 oz Weight 124 lb 6.4 oz 03/22/17 03/23/17 03/24/17 06:59 06:59 06:59 Intake Total 1060 120 Output Total 500 Balance 560 120 - Physical Examination General/Neuro: NAD Neck: no JVD present Lungs: CTA, unlabored respirations Heart: RRR Abdomen: NT/ND Extremities: other: (no edema.) - Telemetry Telemetry Rhythm: NSR - Labs Result Diagrams: 03/21/17 11:31 03/21/17 11:31 Troponin/CKMB CK-MB (CK-2) 2.0 ng/mL (0-6.6) 03/22/17 09:45 Troponin I 0.011 ng/mL (< 0.028) 03/22/17 09:45 - Assessment/Plan 1. Syncope 2. Possible non convulsive seizures. 3. CAD, stable 4. s/p CABG in the past PLAN: - Continue dilating per neurology - He did have syncope on last admission and may have had a recurrence. - Will plan on doing a LINQ.
[2017-03-23] MEDS: Atorvastatin Calcium 10 MG TAB PO SCH (20:55)
--- NOTE | 2017-03-24 08:36 | PRG ---
DATE OF SERVICE: 03/24/2017 SUBJECTIVE: The patient had a good night. He is ready to go home; however interesting to be having a procedure by Cardiology today. He denies any complaints. PHYSICAL EXAMINATION: GENERAL: Upon evaluation, he is awake, alert, and oriented to person, place, and time. VITAL SIGNS: His blood pressure is 130/80, pulse 70, respirations 20, temperature 96.9. NECK: Supple with no increased JVP or carotid bruit. Carotid had good upstroke with no thyromegaly . COR: Regular rate and rhythm. CHEST: Symmetrical. Clear to auscultation and percussion. ABDOMEN: Soft and nontender with normoactive bowel sounds. No bruit or organomegaly. EXTREMITIES: No edema or cyanosis. Palpable pedal pulses. SKIN: There is no evidence of ulceration, lesion, or rash. NEUROLOGIC: He is awake, alert, and oriented to person, place, and time. LABORATORY DATA: CBC normal. There is no CMP in the chart. ASSESSMENT: 1. Syncope. 2. Presumed seizures. 3. Dementia. PLAN: The patient will undergo an event loop monitor today. The son is hoping that he will be able to go home after that; however, I will defer that to Cardiology.
[2017-03-24] MEDS ORDERED: Lidocaine 1% w/Epinephrine 1:100K 20 ML VIAL ONE (10:27)
[2017-03-24 11:34] VITALS: BP 136/72; TEMP 97.4
--- NOTE | 2017-03-25 11:13 | CCL ---
STONE LAYER INSERTION: DATE OF SERVICE: 03/24/2017. PREPROCEDURE DIAGNOSIS: Syncope. POSTPROCEDURE DIAGNOSIS: Syncope. PROCEDURES PERFORMED: Insertion of permanent awake overnight monitor model MB LINQ11, serial number [id number]. COMPLICATIONS: None. DESCRIPTION: The patient was taken to the cardiac supervisor dental laboratory, prepped and draped in the usual sterile fashion. Lid ocaine was utilized for local anesthesia. An incision was made at the 4th intercostal space and the left precordial region utilizing the skin puncture tool. The insertable awake overnight monitor LINQ was i nserted through the puncture site with the LINQ insertion tool. Dermabond was then applied to the s ite in the usual sterile fashion. Time out. RECOMMENDATIONS: 1. Follow up in 1 week for wound check. 2. Continue monitoring. 3. The patient can be discharged home right now. POS: [facility]
== END 2017-03-24 12:45 | disposition home or self-care (01) | DRG 42 ==
LOC: ERS 10:49 → 2NO 13:40
PROVIDERS: ADMIT Specialist; ATTEND Specialist
PROC: 0JH602Z Insertion of Monitoring Device into Chest Subcutaneous Tissue and Fascia, Open Approach (ICD-10-PCS; principal; 2017-03-24)
DX: R56.9 Unspecified convulsions (principal); I48.91 Unspecified atrial fibrillation; F03.90 Unspecified dementia, unspecified severity, without behavioral disturbance, psychotic disturbance, mood disturbance, and anxiety; J44.9 Chronic obstructive pulmonary disease, unspecified; Z95.1 Presence of aortocoronary bypass graft; I10 Essential (primary) hypertension; I25.10 Atherosclerotic heart disease of native coronary artery without angina pectoris; E78.5 Hyperlipidemia, unspecified; Z79.82 Long term (current) use of aspirin; F17.290 Nicotine dependence, other tobacco product, uncomplicated; Z23 Encounter for immunization; I44.0 Atrioventricular block, first degree
CPT/HCPCS: 33282; 36415; 70450; 70551; 71010; 80053; 81003; 82550; 82553; 84484; 85025; 90471; 90682; 90732; 93005; 93306; 95816; 95819; A4216; C1764; G0008; G0009; J2001; Q2036

== ENCOUNTER 2017-08-20 18:41 | Emergency (ER) | payer MEDICARE ==
[2017-08-20 19:28] LABS: #Basophils 0.1 thou/uL (0.0-0.2); #Eosinphils 0.8 thou/uL (0.0-0.7); #Monocytes 0.7 thou/uL (0.11-0.59); #Neutrophils 2.9 thou/uL (1.40-6.50); %Eosinophils 11.9 % (0.0-10.0); %Lymphocytes 31.1 % (21.0-51.0); %Monocytes 11.1 % (0.0-10.0); %Neutrophils 44.8 % (42.0-75.0); Hemoglobin 11.8 g/dL (14.0-18.0); Mean Corpuscular HGB CONC 33.1 g/dL (32.0-36.0); Mean Corpuscular Hemoglobin 31.1 pg (27.0-31.0); Mean Corpuscular Volume 94.1 fl (80.0-94.0); Mean Platelet Volume 7.1 fL (7.4-10.4); Platelet Count 295 thou/uL (130-400); RBC Distribution Width 12.2 % (11.5-14.5); White Blood Cell (WBC) Count 6.4 thou/uL (4.8-10.8)
[2017-08-20 19:53] LABS: ALT (SGPT) 12 U/L (8-55); AST (SGOT) 18 U/L (5-34); Alkaline Phosphatase 98 U/L (40-150); Anion Gap 13 mmol/L (10-20); BUN (Urea Nitrogen) 29 mg/dL (8.4-25.7); Bilirubin, Total 0.4 mg/dL (0.2-1.2); Calc. Creatinine Clearance 0 mL/min (70-130); Calcium 9.7 mg/dL (7.8-10.44); Carbon Dioxide 28 mmol/L (23-31); Chloride 106 mmol/L (98-107); Estimated GFR-MDRD 52; Globulin 2.9 g/dL (2.4-3.5); Glucose 79 mg/dL (83-110); Potassium 4.8 mmol/L (3.5-5.1); Protein, Total 6.9 g/dL (5.8-8.1); Sodium 142 mmol/L (136-145)
[2017-08-20 19:54] LABS: CKMB 3.3 ng/mL (0-6.6); Troponin I 0.024 ng/mL (< 0.028)
[2017-08-20] MEDS ORDERED: Albuterol Sulfate 2.5 mg/0.5 ml Neb ONE (19:55)
--- NOTE | 2017-08-20 20:54 | RAD ---
PORTABLE UPRIGHT FRONTAL CHEST RADIOGRAPH: Date: 08-20-17 Comparison: 03-21-17 History: Cough and weakness. FINDINGS: Midline sternotomy wires and mediastinal clips are present. There is no pneumothorax or pleural fluid and no focal consolidation or alveolar edema. Heart and mediastinal contours demonstrate atheroscler otic calcification of the aortic arch and tortuosity of the thoracic aorta. A loop recorder overlies the left lung base. No lobar consolidation or alveolar edema. IMPRESSION: No focal consolidation or alveolar edema. POS: [facility]
[2017-08-20] MEDS ORDERED: predniSONE 20 MG TAB ONE (20:55)
[2017-08-20] MEDS ORDERED: Azithromycin 250 MG TAB ONE (20:55)
--- NOTE | 2017-09-28 15:27 | EKG ---
Test Reason : Blood Pressure : / mmHG Vent. Rate : 075 BPM Atrial Rate : 075 BPM P-R Int : 218 ms QRS Dur : 100 ms QT Int : 374 ms P-R-T Axes : -13 -17 -09 degrees QTc Int : 417 ms Sinus rhythm with 1st degree A-V block Inferior infarct , age undetermined No STEMI Abnormal ECG Confirmed by MECHELLE GRAHAM ([id number]), deputy editor in chief RIYA WREN ([id number]) on 09/28/2017 3:27:40 PM Referred By: Confirmed By:MECHELLE GRAHAM
== END 2017-08-20 21:10 | disposition home or self-care (01) ==
LOC: ERS 18:41
DX: J40 Bronchitis, not specified as acute or chronic (principal); F03.90 Unspecified dementia, unspecified severity, without behavioral disturbance, psychotic disturbance, mood disturbance, and anxiety; E78.5 Hyperlipidemia, unspecified; I10 Essential (primary) hypertension; F17.210 Nicotine dependence, cigarettes, uncomplicated; Z79.82 Long term (current) use of aspirin
CPT/HCPCS: 71045; 80053; 82553; 83605; 84484; 85025; 93005; 94640; J7506; J7611; J7620

== ENCOUNTER 2018-02-12 09:49 | Outpatient (CLI) | payer MEDICARE | END 2018-02-12 09:50 | disposition home or self-care (01) | LOC: RAD 09:49 → BICRAD 09:50 | PROVIDERS: ATTEND Specialist | DX: M25.531 Pain in right wrist (principal); M79.641 Pain in right hand; M14.841 Arthropathies in other specified diseases classified elsewhere, right hand; M19.031 Primary osteoarthritis, right wrist ==

== ENCOUNTER 2018-03-16 17:18 | Emergency (ER) | payer MEDICARE ==
--- NOTE | 2018-03-16 18:42 | RAD ---
PORTABLE CHEST: 03/16/18 HISTORY: Cough. COMPARISON: 08/20/17 study. Heart size is borderline sized. There are atherosclerotic changes of the aorta and postop sternotomy changes. The lungs are clear of any infiltrative process. IMPRESSION: No active intrathoracic disease. POS: [facility]
[2018-03-16 18:43] LABS: Bilirubin Negative (Negative); Blood, Urine Trace (Negative); Clarity CLEAR (Clear); Glucose, Urine (Dipstick) Negative (Negative); Leukocyte Negative (Negative); Nitrite Negative (Negative); Protein, Urine (Dipstick) Negative (Neg-Trace); Specific Gravity, Urine 1.015 (1.002-1.036); pH, Urine 5.5 (5.0-9.0)
[2018-03-16 18:47] LABS: Bacteria/HPF None Seen HPF (None Seen); Hyaline Casts/LPF 0-3 HYALINE CAST LPF (0-3 Hyaline); Pathc Cast-AUWi Flag 0.29 (0-2.49); RBC/HPF 0-3 HPF (0-3); Squamous Epithelial 0-3 HPF (0-3); WBC/HPF 0-3 HPF (0-3)
[2018-03-16 19:03] LABS: #Eosinphils 0.7 thou/uL (0.0-0.7); #Lymphocytes 1.4 thou/uL (1.20-3.40); #Monocytes 0.4 thou/uL (0.11-0.59); #Neutrophils 1.8 thou/uL (1.40-6.50); %Eosinophils 15.2 % (0.0-10.0); %Lymphocytes 32.9 % (21.0-51.0); %Monocytes 10.1 % (0.0-10.0); %Neutrophils 40.7 % (42.0-75.0); Hemoglobin 12.1 g/dL (14.0-18.0); Mean Corpuscular HGB CONC 32.1 g/dL (32.0-36.0); Mean Corpuscular Hemoglobin 29.6 pg (27.0-31.0); Mean Corpuscular Volume 92.1 fL (78.0-98.0); Mean Platelet Volume 7.2 fL (7.4-10.4); Platelet Count 298 thou/uL (130-400); RBC Distribution Width 13.2 % (11.5-14.5); Red Blood Cell (RBC) Count 4.09 mill/uL (4.70-6.10); White Blood Cell (WBC) Count 4.3 thou/uL (4.8-10.8)
[2018-03-16 19:25] LABS: ALT (SGPT) 14 U/L (8-55); AST (SGOT) 19 U/L (5-34); Albumin 3.9 g/dL (3.4-4.8); Alkaline Phosphatase 85 U/L (40-150); Anion Gap 12 mmol/L (10-20); BUN (Urea Nitrogen) 26 mg/dL (8.4-25.7); Bilirubin, Total 0.5 mg/dL (0.2-1.2); Calc. Creatinine Clearance 0 mL/min (70-130); Calcium 9.2 mg/dL (7.8-10.44); Carbon Dioxide 26 mmol/L (23-31); Chloride 105 mmol/L (98-107); Estimated GFR-MDRD 47; Globulin 2.7 g/dL (2.4-3.5); Glucose 77 mg/dL (83-110); Lipase 19 U/L (8-78); Potassium 4.7 mmol/L (3.5-5.1); Protein, Total 6.6 g/dL (5.8-8.1); Sodium 138 mmol/L (136-145)
[2018-03-16 19:30] LABS: CKMB 2.3 ng/mL (0-6.6); Troponin I 0.011 ng/mL (< 0.028)
--- NOTE | 2018-03-21 13:30 | EKG ---
Test Reason : Blood Pressure : / mmHG Vent. Rate : 081 BPM Atrial Rate : 081 BPM P-R Int : 234 ms QRS Dur : 098 ms QT Int : 374 ms P-R-T Axes : 072 -20 -32 degrees QTc Int : 434 ms Sinus rhythm with 1st degree A-V block with Premature supraventricular complexes Inferior infarct , age undetermined Abnormal ECG Confirmed by PRINCE WALLS DO ([id number]), supervising editor news reel BEE CANO ([id number]) on 03/21/2018 1:30:06 PM Referred By: Confirmed By:PRINCE WALLS DO
== END 2018-03-16 20:30 | disposition home or self-care (01) ==
LOC: ERS 17:18
DX: R55 Syncope and collapse (principal); R05 Cough; M19.90 Unspecified osteoarthritis, unspecified site; E78.5 Hyperlipidemia, unspecified; F03.90 Unspecified dementia, unspecified severity, without behavioral disturbance, psychotic disturbance, mood disturbance, and anxiety; F17.210 Nicotine dependence, cigarettes, uncomplicated; Z79.899 Other long term (current) drug therapy
CPT/HCPCS: 36415; 71045; 80053; 81003; 81015; 82553; 83605; 83690; 83880; 84484; 85025; 93005; 94760

== ENCOUNTER 2018-08-12 16:35 | Emergency (ER) | payer MEDICARE ==
[2018-08-12 16:57] LABS: #Eosinphils 0.4 thou/uL (0.0-0.7); #Lymphocytes 0.9 thou/uL (1.20-3.40); #Monocytes 0.7 thou/uL (0.11-0.59); #Neutrophils 4.3 thou/uL (1.40-6.50); %Basophils 0.7 % (0.0-1.0); %Eosinophils 6.9 % (0.0-10.0); %Lymphocytes 13.9 % (21.0-51.0); %Monocytes 11.3 % (0.0-10.0); %Neutrophils 67.2 % (42.0-75.0); Hemoglobin 12.7 g/dL (14.0-18.0); Mean Corpuscular HGB CONC 32.1 g/dL (32.0-36.0); Mean Corpuscular Hemoglobin 29.6 pg (27.0-31.0); Mean Corpuscular Volume 92.2 fL (78.0-98.0); Mean Platelet Volume 7.9 fL (7.4-10.4); Platelet Count 181 thou/uL (130-400); RBC Distribution Width 12.8 % (11.5-14.5); White Blood Cell (WBC) Count 6.5 thou/uL (4.8-10.8)
[2018-08-12 17:02] LABS: PTT 28.5 SEC (22.9-36.1); Prothrombin Time 13.5 SEC (12.0-14.7)
[2018-08-12 17:13] LABS: ALT (SGPT) 10 U/L (8-55); AST (SGOT) 16 U/L (5-34); Albumin 3.7 g/dL (3.4-4.8); Alkaline Phosphatase 96 U/L (40-150); Anion Gap 13 mmol/L (10-20); BUN (Urea Nitrogen) 26 mg/dL (8.4-25.7); Bilirubin, Total 0.7 mg/dL (0.2-1.2); Calc. Creatinine Clearance 0 mL/min (70-130); Calcium 9.4 mg/dL (7.8-10.44); Carbon Dioxide 24 mmol/L (23-31); Chloride 105 mmol/L (98-107); Estimated GFR-MDRD 34; Globulin 2.6 g/dL (2.4-3.5); Glucose 118 mg/dL (83-110); Potassium 4.3 mmol/L (3.5-5.1); Protein, Total 6.3 g/dL (5.8-8.1); Sodium 138 mmol/L (136-145)
--- NOTE | 2018-08-12 17:21 | CT ---
CT BRAIN WITHOUT CONTTRAST WITH STROKE ACTIVATION: Indication: Slurred speech, level 2 stoke. Last seen normal at 1500 hours. Comparison: CT brain 03-21-17 FINDINGS: No acute infarct, hemorrhage, or hydrocephalus present. There is an interval remote appearing lacunar infarct involving the left thalamus. This is superimposed on moderate chronic small vessel which mat ter ischemic change with remote cortically based infarct involving the left frontal lobe and both cer ebellar hemispheres. No midline shift is present. The mastoid air cells are clear. Paranasal sinuses are clear. Skull is intact. IMPRESSION: 1. No acute intracranial abnormality. 2. Chronic ischemic change as above. Of note, there is an interval remote left thalamic lacunar infar ct. The left frontal lobe cortical and bilateral cerebellar hemisphere lacunar infarcts are stable to the comparison. The moderate chronic small vessel white matter ischemic change is stable. 3. Findings were called to Dr. Perry at 5:11 p.m. on 08-12-18. Code CR POS: [facility]
--- NOTE | 2018-08-12 19:01 | RAD ---
RADIOGRAPH CHEST 1 VIEW: HISTORY: 87-year-old male with cough. FINDINGS: The thoracic aorta is tortuous and ectatic. There is no evidence of air space density, pneumothorax, or pulmonary edema. The lateral costophrenic angles are sharp. There is no cardiomegaly. There are sternotomy wires. IMPRESSION: 1) No acute pulmonary findings. 2) Ectasia of thoracic aorta. jn POS: [facility]
[2018-08-12 19:10] LABS: Bilirubin Negative (Negative); Blood, Urine Negative (Negative); Clarity CLEAR (Clear); Glucose, Urine (Dipstick) Negative (Negative); Leukocyte Negative (Negative); Nitrite Negative (Negative); Protein, Urine (Dipstick) Negative (Neg-Trace); Specific Gravity, Urine 1.009 (1.002-1.036); pH, Urine 5.5 (5.0-9.0)
== END 2018-08-12 19:31 | disposition home or self-care (01) ==
LOC: ERS 16:35
DX: E86.0 Dehydration (principal); R41.82 Altered mental status, unspecified; F03.90 Unspecified dementia, unspecified severity, without behavioral disturbance, psychotic disturbance, mood disturbance, and anxiety; E78.5 Hyperlipidemia, unspecified; I10 Essential (primary) hypertension; F17.210 Nicotine dependence, cigarettes, uncomplicated; Z79.899 Other long term (current) drug therapy
CPT/HCPCS: 36415; 36416; 70450; 71045; 80053; 81003; 84443; 84484; 85025; 85610; 85730; 93005; 96360

== ENCOUNTER 2018-10-13 06:32 | Inpatient (IN) | payer MEDICARE ==
[2018-10-13] MEDS ORDERED: Piperacillin/Tazobactam 4.5 GM VIAL ONE (07:24)
[2018-10-13 07:33] LABS: Bilirubin Small (Negative); Blood, Urine Large (Negative); Clarity CLOUDY (Clear); Glucose, Urine (Dipstick) Negative (Negative); Leukocyte Trace (Negative); Nitrite Negative (Negative); Protein, Urine (Dipstick) 30 mg/dL (Neg-Trace); Specific Gravity, Urine 1.024 (1.002-1.036); pH, Urine 5.5 (5.0-9.0)
[2018-10-13 07:35] LABS: Bacteria/HPF None Seen HPF (None Seen); Hyaline Casts/LPF 7-10 HYALINE CAST LPF (0-3 Hyaline); Pathc Cast-AUWi Flag 2.17 (0-2.49); Squamous Epithelial 0-3 HPF (0-3); WBC/HPF None Seen HPF (0-3)
[2018-10-13 07:39] LABS: ALT (SGPT) 13 U/L (8-55); AST (SGOT) 34 U/L (5-34); Albumin 3.1 g/dL (3.4-4.8); Alkaline Phosphatase 47 U/L (40-150); Anion Gap 21 mmol/L (10-20); BUN (Urea Nitrogen) 55 mg/dL (8.4-25.7); Bilirubin, Total 1.9 mg/dL (0.2-1.2); CK (CPK) 533 U/L (30-200); Calc. Creatinine Clearance 0 mL/min (70-130); Calcium 8.8 mg/dL (7.8-10.44); Carbon Dioxide 17 mmol/L (23-31); Chloride 106 mmol/L (98-107); Estimated GFR-MDRD 24; Globulin 2.3 g/dL (2.4-3.5); Glucose 99 mg/dL (83-110); Lipase Less than 4 U/L (8-78); Potassium 4.5 mmol/L (3.5-5.1); Protein, Total 5.4 g/dL (5.8-8.1); Sodium 139 mmol/L (136-145)
[2018-10-13 07:43] LABS: Band 49 % (5-11); Eosinophils 2 % (0-10); Hemoglobin 12.6 g/dL (14.0-18.0); Lymphocytes 11 % (21-51); MDiff Complete? YES; Mean Corpuscular HGB CONC 32.1 g/dL (32.0-36.0); Mean Corpuscular Hemoglobin 29.7 pg (27.0-31.0); Mean Corpuscular Volume 92.4 fL (78.0-98.0); Mean Platelet Volume 8.5 fL (7.4-10.4); Metamyelocyte 4 % (0-0); Monocytes 8 % (0-10); Myelocyte 1 % (0-0); Neutrophil 25 % (42-75); Platelet Count 156 thou/uL (130-400); RBC Distribution Width 13.9 % (11.5-14.5); Red Blood Cell (RBC) Count 4.25 mill/uL (4.70-6.10); Reflex for Review?? YES; Vacuoles MODERATE; White Blood Cell (WBC) Count 4.6 thou/uL (4.8-10.8)
--- NOTE | 2018-10-13 07:47 | CT ---
CT Brain WO Con: 10/13/2018 7:08 AM CLINICAL HISTORY: Altered mental status; found down and dyspnea. IMAGING TECHNIQUE: Multiple CT images were obtained of the brain without IV contrast. COMPARISON: August 12, 2018 FINDINGS: Infarct: No acute infarct evident. There are remote lacunar infarcts involving the left thalamus and both cerebellar hemispheres. There is moderate global vessel white matter ischemic change. Hemorrhage: None. Hydrocephalus: None.. Basal cisterns: Normal. Cerebral parenchyma: Normal. Midline shift: None. Cerebellum: No acute abnormality. Brainstem: Normal. OTHER: Calvarium: Normal. Visualized Paranasal sinuses: Clear. Extracranial soft tissues:Normal IMPRESSION: No acute intracranial abnormality.
[2018-10-13 07:54] LABS: RBC/HPF 21-50 HPF (0-3)
[2018-10-13 08:01] LABS: CKMB 4.7 ng/mL (0-6.6)
[2018-10-13] MEDS ORDERED: Aspirin 300 MG Suppository ONE (08:04)
[2018-10-13] MEDS ORDERED: Ziprasidone 20 MG VIAL ONE ×2 (08:16→09:18)
--- NOTE | 2018-10-13 08:36 | RAD ---
CHEST 1 VIEW: Date: 10/13/18 INDICATION: Difficulty breathing. COMPARISON: Prior exam dated 08/18/18. FINDINGS: There is air space opacity in the right lower lobe suspicious for pneumonia. Small right pleural effu jose. Left lung clear. Post CABG change similar appearing. Scattered degenerative change similar. IMPRESSION: 1. Findings suspicious for right lower lobe pneumonia with small right parapneumonic effusion. Recom mend radiographic follow-up to resolution. 2. Stable mild cardiomegaly and left chest wall loop recorder. POS: [facility]
[2018-10-13] MEDS ORDERED: Digoxin 0.5 MG/2 ML AMP ONE (08:46)
[2018-10-13] MEDS ORDERED: Magnesium 2 GM/50 ML BAG (IN WATER) ONE (08:47)
[2018-10-13] MEDS ORDERED: Ondansetron PF 4 MG/2 ML Vial IVP PRN (10:12)
[2018-10-13] MEDS ORDERED: Ondansetron ODT 4 MG TAB SL PRN (10:12)
[2018-10-13] MEDS ORDERED: Acetaminophen 325 MG TAB PO PRN (10:12)
[2018-10-13 11:42] LABS: Lactic Acid 8.5 mmol/L (0.5-2.2)
[2018-10-13] MEDS ORDERED: Midazolam HCl 2 mg/2 ml Vial ONE (11:50)
[2018-10-13] MEDS ORDERED: Propofol 1,000 MG/100 ML VIAL IV ONE (11:58)
[2018-10-13] MEDS: Sodium Chloride 0.9% 1,000 ML IV SCH ×3 (11:59→20:23)
[2018-10-13] MEDS ORDERED: Ventilator Sedation Protocol 1 EACH FS SCH (12:04)
[2018-10-13] MEDS ORDERED: Midazolam HCl 2 mg/2 ml Vial SLOW IVP SCH (12:15)
[2018-10-13] MEDS ORDERED: Sodium Chloride 0.9% 1,000 ML IV SCH ×3 (12:15→18:30)
[2018-10-13] MEDS ORDERED: Lorazepam 2 MG/ML VIAL SLOW IVP PRN (12:23)
[2018-10-13] MEDS ORDERED: Fentanyl BOLUS 250 ML IVPB PRN (12:23)
[2018-10-13] MEDS ORDERED: Propofol 1,000 MG/100 ML VIAL IV PRN (12:23)
[2018-10-13] MEDS ORDERED: Propofol BOLUS 1,000 MG/100 ML VIAL IV PRN (12:23)
[2018-10-13] MEDS ORDERED: Morphine 2 MG/ML SYRINGE SLOW IVP PRN (12:23)
[2018-10-13] MEDS ORDERED: DISCONTINUE PREVIOUS NARCOTIC PAIN MEDICATIONS AND BENZODIAZEPINES FS SCH (12:23)
[2018-10-13 13:23] LABS: Actual Bicarbonate (HCO3a) 13.2 mEq/L (22-28); Base Excess (BEa) -11.4 mEq/L (-2.0 to +3.0); CO2 Tension 26.2 mmHg (35.0-45.0); Calcium, Ionized 1.11 mmol/L (1.12-1.30); Carboxyhemoglobin (COHb) 0.1 gm% (0.0-3.0); Hemoglobin (Hb) 11.7 g/dL (14.0-18.0); O2 Tension (PaO2) 212.9 mmHg (> 60.0); Potassium - ABG Lab 4.02 mmol/L (3.70-5.30); pH, Arterial 7.32 (7.35-7.45)
[2018-10-13 13:39] LABS: Puncture Site L.R.
--- NOTE | 2018-10-13 13:40 | CON ---
DATE OF CONSULTATION: 10/13/2018 HISTORY OF PRESENT ILLNESS: Mr. Robison is an 87-year-old male with dementia. He presented with shortness of breath. He was admitted initially to the intermediate care unit and then transferred to critical care unit. I was consulted. He can speak in 3 to 5 word sentences. He clinically was having difficulty with secretions. I recommended intubation. PAST MEDICAL HISTORY: Remarkable for; 1. Lipid disorder. 2. History of hypertension. 3. History of arthritis. 4. History of resection of an actinic keratosis in September of this year. 5. 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 6. Status post excision of a basal cell carcinoma in March of last year. 7. History of atrial fibrillation. 8. History of COPD. 9. History of according to old records, medical noncompliance. 10. History of an admission for syncope in February 2017. 11. History of a fixed inferior lateral nuclear perfusion defect on myocardial scan. 12. History of an ejection fraction 42% on nuclear study in 2016. 13. History of cardiac catheterization done in [address] Ho showing no flow-limiting disease. FAMILY HISTORY: Negative for lung disease in early age. SOCIAL HISTORY: His son is his documentation specialist. He apparently has dementia. In the past, he is a cigar smoker. It is unclear if he is still smoking cigars. He has no history of heavy alcohol use. He has no reported drug allergies. REVIEW OF SYSTEMS: A 10-point review of systems completed; is not obtainable given the patient's confusion and respiratory distress. PHYSICAL EXAMINATION: VITAL SIGNS: Heart rate is fluctuating between 116 and 150s and atrial fibrillation. He is afebrile. Respiratory rates in the high 20s, oximetry is 92% on 2 L cannula, and blood pressure 136/72. HEENT: Pupils react. Sclerae are anicteric. It appears he has temporal muscle wasting. His ribs are visible. CHEST: Examination of his chest, he has upper airway secretions that were audible without a stethoscope that he is not effectively clearing. NECK: Without lymphadenopathy. LUNGS: Remarkable for diffuse rhonchi. HEART: Irregularly irregular, rapid rate. Grade 2/6 systolic murmur. ABDOMEN: Soft. No guarding or rigidity. EXTREMITIES: Without asymmetry or edema. LABORATORY DATA: White count 4.6, hemoglobin 12.6, and platelets 156. He has 49% bands on his peripheral smear. Sodium 139, potassium 4.5, chloride 106, bicarb 17, BUN 55, creatinine 2.54, baseline creatinine in August was 1.87 and in March of last year, 1.42. Chest radiograph is hazy at the right base. I have reviewed this. IMPRESSION: 1. Pneumonia with retained secretions. 2. Respiratory distress secondary to inability to clear secretions. 3. Cachexia. 4. Acute on chronic kidney disease. 5. Probable intravascular volume depletion. 6. Hyperbilirubinemia. 7. Hypoalbuminemia. PLAN: Recommend ventilatory support. I think he will succumb to this illness if he is not supported. Dr. Nye discussed with the son and he wants everything to be done. He has since been subsequently intubated. He is connected to mechanical ventilation. He will be sedated per sedation protocol. CRITICAL CARE TIME: 35 minutes, independent of procedure performed. Job ID: [id number] MTDD
[2018-10-13] MEDS ORDERED: Piperacillin/Tazobactam 3.375 GM in Sodium Chloride 0.9% 100 ML IVPB SCH (14:00)
[2018-10-13] MEDS: fentaNYL Citrate/PF 2,000 MCG in Sodium Chloride 0.9% 60 ML IV SCH (14:11)
[2018-10-13] MEDS: Piperacillin/Tazobactam 2.25 GM in Sodium Chloride 0.9% 100 ML IVPB SCH ×2 (14:18→23:07)
[2018-10-13] MEDS ORDERED: Norepinephrine 8 MG/0.9% NS 250 ML ONE (16:27)
[2018-10-13] MEDS: Norepinephrine 8 MG/250 ML BAG IVPB PRN (16:30)
[2018-10-13] MEDS ORDERED: Digoxin 0.5 MG/2 ML AMP SLOW IVP SCH (17:15)
[2018-10-13] MEDS: methylPREDNISolone Sod Succ 40 MG VIAL IVP SCH ×2 (17:30→23:07)
--- NOTE | 2018-10-13 18:42 | HP ---
CHIEF COMPLAINT: Right lower lobe pneumonia and dyspnea with dehydration, sepsis, acute renal insufficiency. HISTORY OF PRESENT ILLNESS: The patient is an 87-year-old male, who lives with his son and daughter, who has been showing a steady decline over the last several months with worsening of his dementia. He has become so agitated. Geodon was necessary at times to control his behavior. He has been started on Namenda, and the plan was to increase that dose as well as that Aricept. Over the last several days, his son noticed that he was having increased shortness of breath. He was dyspneic with minimal exertion. His confusion had worsened. EMS was called and found him hypoxic at 88%. He was given three DuoNeb on the way in from the field. He has been afebrile, but he has had his heart racing. Blood pressure on arrival to the ER was 118/53. Due to agitation in the emergency room, he was given two doses of Geodon, and Geodon has the known consequence of lowering the blood pressure, which it did in fact. For that reason, he is being placed in CCU to monitor his blood pressure. The son was confronted about his code status, and for now he is a full code. PAST MEDICAL HISTORY: Significant for prior episodes of syncope. He has had seizures. He has significant senile dementia. He has a history of CHF, hyperlipidemia, hypertension, degenerative joint disease, hard of hearing/presbycusis and Parkinson disease. He has also had an AICD placed. Prostate cancer and COPD. Long history of noncompliance with medical recommendations. PAST SURGICAL HISTORY: Includes coronary artery bypass graft surgery, pacemaker placement, prostatectomy. PSYCHIATRIC HISTORY: Aside from this recent onset of dementia is negative. SOCIAL HISTORY: Lives with his son and daughter at home. Does not drink alcoholic beverages. Uses illicit drugs. Continues to smoke many cigars. ALLERGIES: HE HAS NO KNOWN DRUG ALLERGIES. CURRENT MEDICATIONS: Include, 1. Ramipril, I believe it is 5 mg p.o. daily. 2. Namenda 5 mg b.i.d. 3. Celebrex 200 mg daily for arthritis. 4. Geodon 40 mg in the evenings to control sundowning and agitation. 5. He also takes Dilantin 300 mg every evening as well as an 81 mg aspirin. 6. He also takes atorvastatin 40 mg at bedtime. 7. He has a long history of being noncompliant with his medications. REVIEW OF SYSTEMS: At the time of admission, there is a report of general malaise and fever, but no chills. HEENT: Denies any pain in his eyes, ears, nose, or throat. There is no drainage from these. CHEST: Significant for shortness of breath and cough. CARDIOVASCULAR: Denies chest pain or palpitations. GI: No nausea, vomiting, or diarrhea. : Denies blood in urine or stool, but does have some dysuria. MUSCULOSKELETAL: Has significant arthritis in his major joints. SKIN: No new rashes or lesions. NEUROLOGIC: Remains confused most of the time and has been getting generally weaker at the time of evaluation. He is oriented x1. PHYSICAL EXAMINATION: At the time of admission, VITAL SIGNS: Blood pressure 96/57, pulse 112, respirations 24, temperature 100.8 rectally, O2 saturation 95% on room air. GENERAL: This is an elderly cachectic male. Alert and oriented to person and place. He is out to date. He does recognize the examiner. HEENT: Sunken eyes and temporal wasting. Pupils are equal, round, and reactive to light. Reactivity is diminished at 1 to 2 mm each. Arcus senilis bilaterally. Nares and pharynx are clear and membranes are somewhat dry. NECK: Supple. Trachea midline. CHEST: With rales in the right lower lobe. HEART: Regular rate and rhythm. ABDOMEN: Scaphoid without appreciable organomegaly and nontender. : Deferred. EXTREMITIES: Without clubbing, cyanosis, or edema. Symmetrical muscular wasting in upper and lower extremities, left and right. Range of motion is normal. SKIN: Without acute rashes, lesions, bruising, or ecchymosis. NEUROLOGIC: Cranial nerves are intact. Unable to test gait or cerebellar function at this time. Mental status is at baseline. Sensory exam is grossly intact. LABORATORY DATA: On admission, WBCs at 4.6, hemoglobin 12.6, hematocrit 39.3 with platelets at 156. He has 49% bandemia. Sodium is 139, potassium 4.5, chloride 106, CO2 17, BUN 55, creatinine 2.55 with a lactic acid of 6, glucose is 99. Liver functions unremarkable. Ammonia 13. CK elevated at 533. Troponins elevated at 0.245. BNP elevated at 3022. TSH is normal at 0.95. Urinalysis significant for RBCs, trace ketones. ASSESSMENT: 1. Respiratory failure due to right lower lobe pneumonia. 2. Chronic obstructive pulmonary disease, mild exacerbation. 3. Acute renal insufficiency, probably due to dehydration. 4. Mild dehydration. 5. Senile dementia. PLAN: Plan will be to continue IV antibiotics. Scheduled neb treatments. We will stop using Geodon due to the hypotension that has caused. Necessitating CCU admission. We use Ativan for agitation instead, and pulmonary consultations have already been obtained. We will serially re-evaluate the patient as needed, and we will fluid rehydrate him as well, being careful not to exacerbate his CHF. We will also repeat an echocardiogram last one done in 2017. Job ID: [id number]
[2018-10-13] MEDS: Famotidine/PF 20 mg/2ml Vial SLOW IVP SCH (19:51)
[2018-10-14] MEDS: Sodium Chloride 0.9% 1,000 ML IV SCH ×3 (01:28→21:44)
[2018-10-14] MEDS: methylPREDNISolone Sod Succ 40 MG VIAL IVP SCH ×4 (05:15→23:38)
[2018-10-14] MEDS: Piperacillin/Tazobactam 2.25 GM in Sodium Chloride 0.9% 100 ML IVPB SCH ×3 (05:15→21:42)
[2018-10-14] MEDS: Norepinephrine 8 MG/250 ML BAG IVPB PRN ×3 (05:42→21:42)
[2018-10-14 06:33] LABS: ALT (SGPT) 16 U/L (8-55); AST (SGOT) 36 U/L (5-34); Albumin 2.4 g/dL (3.4-4.8); Alkaline Phosphatase 30 U/L (40-150); Anion Gap 14 mmol/L (10-20); BUN (Urea Nitrogen) 61 mg/dL (8.4-25.7); Bilirubin, Direct 0.9 mg/dL (0.1-0.3); Bilirubin, Total 1.3 mg/dL (0.2-1.2); Calc. Creatinine Clearance 21 mL/min (70-130); Calcium 7.8 mg/dL (7.8-10.44); Carbon Dioxide 16 mmol/L (23-31); Chloride 114 mmol/L (98-107); Estimated GFR-MDRD 26; Glucose 90 mg/dL (83-110); Potassium 4.8 mmol/L (3.5-5.1); Protein, Total 4.4 g/dL (5.8-8.1); Sodium 139 mmol/L (136-145)
--- NOTE | 2018-10-14 07:16 | RAD ---
CHEST 1 VIEW: Date: 10/14/18 INDICATION: Daily CCU examination. COMPARISON: Prior exam dated 10/13/18 FINDINGS: The patient has been intubated with ET tube seen at the level of the thoracic inlet. Gastric catheter is seen within the fundus. Loop recorder overlying left chest wall is stable appearing. There is wor sening right-sided pleural parenchymal opacity. Small left pleural effusion is now present. There is worsening pulmonary vascular congestion. IMPRESSION: 1. Worsening opacity in the right lower lobe with worsening right-sided pleural effusion. There is i nterval development of a new small left pleural effusion. Cardiomegaly and pulmonary vascular congest ion has worsened. 2. Patient is now intubated with associated gastric catheter placement. No pneumothorax. POS: [facility]
[2018-10-14 07:19] LABS: Actual Bicarbonate (HCO3a) 16.5 mEq/L (22-28); Base Excess (BEa) -9.1 mEq/L (-2.0 to +3.0); CO2 Tension 34.8 mmHg (35.0-45.0); Calcium, Ionized 1.11 mmol/L (1.12-1.30); Carboxyhemoglobin (COHb) 0.5 gm% (0.0-3.0); Hemoglobin (Hb) 12.1 g/dL (14.0-18.0); Potassium - ABG Lab 4.66 mmol/L (3.70-5.30); pH, Arterial 7.29 (7.35-7.45)
[2018-10-14 07:49] LABS: Puncture Site L.R.
[2018-10-14 07:55] LABS: Crenated RBC MODERATE= 6-15 cells (100X) (None Seen); Hemoglobin 11.5 g/dL (14.0-18.0); MDiff Complete? YES; Mean Corpuscular HGB CONC 31.7 g/dL (32.0-36.0); Mean Corpuscular Hemoglobin 29.9 pg (27.0-31.0); Mean Corpuscular Volume 94.3 fL (78.0-98.0); Mean Platelet Volume 8.7 fL (7.4-10.4); Platelet Count 118 thou/uL (130-400); Platelet Morphology Comment Appears Decreased; RBC Distribution Width 13.9 % (11.5-14.5); Red Blood Cell (RBC) Count 3.85 mill/uL (4.70-6.10); White Blood Cell (WBC) Count 8.1 thou/uL (4.8-10.8)
[2018-10-14 07:58] LABS: Band 48 % (5-11); Lymphocytes 9 % (21-51); Metamyelocyte 3 % (0-0); Monocytes 4 % (0-10); Myelocyte 1 % (0-0); Neutrophil 35 % (42-75); Toxic Granulation MODERATE; Vacuoles SLIGHT
[2018-10-14] MEDS: Enoxaparin Sodium 30 MG/0.3 ML SYRINGE SC SCH (08:49)
[2018-10-14] MEDS ORDERED: Prevnar 13-Val Conj/PF 0.5 ML SYRINGE IM ONE (09:00)
[2018-10-14] MEDS ORDERED: Sodium Chloride 0.45% 1,000 ML IV SCH ×3 (09:15→11:15)
[2018-10-14] MEDS ORDERED: Acetaminophen 325 MG TAB PO PRN (09:38)
[2018-10-14] MEDS ORDERED: Lorazepam 2 MG/ML VIAL SLOW IVP PRN (09:39)
[2018-10-14] MEDS ORDERED: Ondansetron ODT 4 MG TAB PO PRN (09:53)
[2018-10-14] MEDS ORDERED: Ondansetron PF 4 MG/2 ML Vial IVP PRN (09:53)
[2018-10-14] MEDS ORDERED: Piperacillin/Tazobactam 3.375 GM in Sodium Chloride 0.9% 100 ML IVPB SCH (12:00)
[2018-10-14] MEDS: fentaNYL Citrate/PF 2,000 MCG in Sodium Chloride 0.9% 60 ML IV SCH (13:51)
[2018-10-14] MEDS: Famotidine/PF 20 mg/2ml Vial SLOW IVP SCH (20:51)
[2018-10-14] MEDS: Atorvastatin Calcium 40 MG TAB PO SCH (20:51)
[2018-10-15 04:43] LABS: Anion Gap 14 mmol/L (10-20); BUN (Urea Nitrogen) 73 mg/dL (8.4-25.7); Calc. Creatinine Clearance 19 mL/min (70-130); Calcium 8.2 mg/dL (7.8-10.44); Carbon Dioxide 17 mmol/L (23-31); Chloride 115 mmol/L (98-107); Estimated GFR-MDRD 23; Glucose 99 mg/dL (83-110); Potassium 5.3 mmol/L (3.5-5.1); Sodium 141 mmol/L (136-145)
[2018-10-15] MEDS: methylPREDNISolone Sod Succ 40 MG VIAL IVP SCH ×4 (05:23→23:34)
[2018-10-15] MEDS: Piperacillin/Tazobactam 2.25 GM in Sodium Chloride 0.9% 100 ML IVPB SCH ×3 (05:23→21:18)
[2018-10-15 05:25] LABS: Band 23 % (5-11); Burr Cells MODERATE= 6-15 cells (100X) (0-1/hpf); Dohle Bodies SLIGHT; Hemoglobin 11.4 g/dL (14.0-18.0); Lymphocytes 2 % (21-51); MDiff Complete? YES; Mean Corpuscular HGB CONC 31.9 g/dL (32.0-36.0); Mean Corpuscular Hemoglobin 30.1 pg (27.0-31.0); Mean Corpuscular Volume 94.4 fL (78.0-98.0); Mean Platelet Volume 9.6 fL (7.4-10.4); Monocytes 6 % (0-10); Myelocyte 1 % (0-0); Neutrophil 68 % (42-75); Platelet Count 103 thou/uL (130-400); Platelet Morphology Comment Appears Decreased; RBC Distribution Width 14.1 % (11.5-14.5); Toxic Granulation SLIGHT; White Blood Cell (WBC) Count 13.4 thou/uL (4.8-10.8)
[2018-10-15 05:35] VITALS: BMI 20.8
[2018-10-15 06:50] LABS: Actual Bicarbonate (HCO3a) 15.9 mEq/L (22-28); Base Excess (BEa) -11.1 mEq/L (-2.0 to +3.0); CO2 Tension 39.6 mmHg (35.0-45.0); Calcium, Ionized 1.15 mmol/L (1.12-1.30); Carboxyhemoglobin (COHb) 0.5 gm% (0.0-3.0); O2 Tension (PaO2) 100.5 mmHg (> 60.0)
[2018-10-15 06:51] LABS: Puncture Site RRA; pH, Arterial 7.22 (7.35-7.45)
[2018-10-15] MEDS ORDERED: Albumin 25% 25 GM/100 ML BOT IVPB SCH (07:15)
[2018-10-15] MEDS ORDERED: Sodium Chloride 0.9% 1,000 ML IV SCH ×2 (07:15→07:30)
[2018-10-15] MEDS ORDERED: Albumin 25% 100 ML ONE (07:50)
--- NOTE | 2018-10-15 08:01 | RAD ---
CHEST 1 VIEW: Date: 10/15/18 HISTORY: Pneumonia. Follow-up. COMPARISON: 10/14/18. FINDINGS: Cardiac silhouette is magnified by projection. Pulmonary vasculature upper limits of normal. Mediasti num remains midline. Lines and tubes are unchanged in position. Right pleural fluid and basilar infil trates and mild patchy infiltrate at the left base are unchanged. No evidence of pneumothorax. IMPRESSION: Dense right basilar infiltrate, pleural fluid, and other findings are stable. POS: CET
--- NOTE | 2018-10-15 08:26 | PRG ---
DATE OF SERVICE: 10/14/2018 SUBJECTIVE: Mr. Robison is on 9 mcg of Levophed. He moves all his extremities. His eyes were open. OBJECTIVE: VITAL SIGNS: His heart rate is in the 80s, respiratory rate is 18, oximetry is 100%, and blood pressure 109/63. Intake and output, positive 4504. LUNGS: Remarkable for improved rhonchi compared to yesterday. HEART: Regular rhythm. ABDOMEN: Soft and nontender. EXTREMITIES: Without edema. His feet are warm. NEUROLOGIC: Nonfocal. LABORATORY DATA: White count 8.1, hemoglobin 11.5, platelets 118. Sodium 139, potassium 4.8, chloride 114, bicarb 16, BUN 61, and creatinine 2.38. PH 7.29, pCO2 of 34, pO2 of 85. IMPRESSION: 1. Respiratory failure secondary to tracheobronchitis and pneumonia. Blood culture so far negative. Respiratory culture showed many gram-negative rods, so that would overlap the gram-negative coverage, starting Levaquin today. Other problems include anemia likely of chronic disease. 1. Hyperchloremic acidosis secondary to volume resuscitation. He will be switched to half-normal saline today. 2. Mild thrombocytopenia, likely associated with his critical illness. 3. Dementia. 4. Deconditioning. 5. Intravascular volume depletion on admission, requiring high volume resuscitation. Blood cultures negative so far. His prognosis is extremely guarded given his underlying dementia and deconditioning. Critical care time 30 minutes. ADDENDUM: I would not diurese him given his ongoing pressor requirements and his requirements for volume resuscitation. Job ID: [id number] MTDD
[2018-10-15] MEDS: Sodium Chloride 0.9% 1,000 ML IV SCH ×2 (08:32→12:10)
[2018-10-15] MEDS ORDERED: Enoxaparin Sodium 30 MG/0.3 ML SYRINGE ONE (09:06)
[2018-10-15] MEDS ORDERED: Aspirin Chewable 81 MG TAB ONE (09:06)
[2018-10-15] MEDS ORDERED: Levofloxacin 500 mg/D5W 100 ml Premix Bag ONE (09:06)
[2018-10-15] MEDS: Enoxaparin Sodium 30 MG/0.3 ML SYRINGE SC SCH (09:09)
[2018-10-15] MEDS: Aspirin Chewable 81 MG TAB PO SCH (09:09)
--- NOTE | 2018-10-15 10:12 | OP ---
DATE OF PROCEDURE: 10/13/2018 PROCEDURE PERFORMED: Fiberoptic bronchoscopy with intubation and therapeutic suctioning. DESCRIPTION OF PROCEDURE: The patient was given 1 mg of Versed. Bronchoscope was passed through a bite block. Copious oral secretions were encountered and took approximately 2 minutes to suction clear. Vocal cords were visualized, appeared normal. No lesions were seen on his cords. The scope was passed through his cords followed by 7.5 endotracheal tube which was secured above the garo. Copious purulent secretions were encountered in his trachea. Right lower lobe, right upper lobe, left lower lobe, left upper lobe and right middle lobe were visualized. No endobronchial lesions were seen. Majority of the secretions were in the trachea in the right mainstem bronchus. Specimens will be sent for culture. He tolerated intubation well. Job ID: [id number]
--- NOTE | 2018-10-15 10:25 | PRG ---
DATE OF SERVICE: 10/15/2018 SUBJECTIVE: Mr. Robison is sedated for ventilation. OBJECTIVE: VITAL SIGNS: His heart rate 69, blood pressure 96/54, respiratory rate is 18. Intake and output positive 3036, positive 4504 the prior day. LUNGS: Clear. HEART: Regular rhythm. ABDOMEN: Soft. EXTREMITIES: Without edema. LABORATORY DATA: White count 13.4, hemoglobin 11.4, platelets 103,000. Sodium 141, potassium 5.3, chloride 115, bicarb 17, BUN 73, and creatinine 2.65. IMPRESSION: 1. Severe asthmatic bronchitis with pneumonia. 2. Dementia. 3. Respiratory failure secondary to inability to clear his secretions. 4. Hyperchloremic acidosis. 5. Progressive renal insufficiency. He will receive another fluid bolus this morning and started on some salt-poor albumin. 6. Borderline elevated liver enzymes. 7. Elevated BNP. 8. Clinical cachexia with protein malnutrition. I do not feel he is weanable at this time and I do not feel he will recover from this illness. Either care input would be appropriate. Critical care time is 35 minutes. Job ID: [id number] MTDD
[2018-10-15] MEDS: Norepinephrine 8 MG/250 ML BAG IVPB PRN (17:55)
[2018-10-15] MEDS: Famotidine/PF 20 mg/2ml Vial SLOW IVP SCH (20:23)
[2018-10-15] MEDS: Atorvastatin Calcium 40 MG TAB PO SCH (20:24)
[2018-10-16] MEDS: Sodium Chloride 0.9% 1,000 ML IV SCH (00:26)
[2018-10-16] MEDS: methylPREDNISolone Sod Succ 40 MG VIAL IVP SCH (05:55)
[2018-10-16] MEDS: Piperacillin/Tazobactam 2.25 GM in Sodium Chloride 0.9% 100 ML IVPB SCH (05:55)
[2018-10-16] MEDS: Aspirin Chewable 81 MG TAB PO SCH (09:18)
[2018-10-16] MEDS: Enoxaparin Sodium 30 MG/0.3 ML SYRINGE SC SCH (09:18)
[2018-10-16] MEDS: Morphine 4 MG/ML VIAL SLOW IVP PRN ×4 (10:50→22:11)
[2018-10-16] MEDS: Lorazepam 2 MG/ML VIAL SLOW IVP PRN ×3 (11:00→14:21)
--- NOTE | 2018-10-16 12:55 | PRG ---
DATE OF SERVICE: 10/16/2018 SUBJECTIVE: Mr. Robison is clinically unchanged. He is not awake. He is not sedated. OBJECTIVE: VITAL SIGNS: Heart rates in the 80s, blood pressure is 125/60, and respiratory rate was in the teens. LUNGS: Remarkable for rhonchi. HEART: Regular rhythm. ABDOMEN: Soft and nontender. EXTREMITIES: Without asymmetry. LABORATORY DATA: White count 13.4, hemoglobin 11.4, and platelets 103,000. Sodium 141, potassium 5.3, chloride 115, bicarb 17, BUN 73, and creatinine 2.65. IMPRESSION AND PLAN: 1. Respiratory failure, secondary to tracheobronchitis and pneumonia. 2. Advanced dementia. 3. Cachexia with deconditioning. I had a long meeting with the family. The family wants comfort care and they want him extubated. This has been done successfully. He will be transferred out of the critical care unit for comfort care. We will sign off. A p.r.n. ordered for Ativan and morphine has been entered in the computer. I met with family and answered all their questions. Job ID: [id number]
[2018-10-16] MEDS ORDERED: Scopolamine 1.5 mg/72 hour Patch TOP SCH (14:15)
--- NOTE | 2018-10-16 17:54 | PDOC.EVN ---
Event Note - Event Note Event Note: I was called to help with DNR paperwork for patient. Patient was terminally extubated and plan is to go with [facility]. I did speak with the son and MPOMitch Robison and he confirmed that patient is a DNAR. OOH DNAR form filled out.
[2018-10-16 19:46] VITALS: BP 130/64; TEMP 97.8
== END 2018-10-16 22:19 | disposition hospice, inpatient (51) | DRG 208 ==
LOC: ERS 06:32 → IMCU/EMU 08:51 → CCU 11:35 → ONC 10-16 12:26
PROVIDERS: ADMIT Specialist; ATTEND Specialist
PROC: 5A1945Z Respiratory Ventilation, 24-96 Consecutive Hours (ICD-10-PCS; principal; 2018-10-13)
PROC: 0BH18EZ Insertion of Endotracheal Airway into Trachea, Via Natural or Artificial Opening Endoscopic (ICD-10-PCS; 2018-10-13)
PROC: 0B938ZZ Drainage of Right Main Bronchus, Via Natural or Artificial Opening Endoscopic (ICD-10-PCS; 2018-10-13)
PROC: 0B918ZZ Drainage of Trachea, Via Natural or Artificial Opening Endoscopic (ICD-10-PCS; 2018-10-13)
DX: J18.1 Lobar pneumonia, unspecified organism (principal); J96.91 Respiratory failure, unspecified with hypoxia; I13.0 Hypertensive heart and chronic kidney disease with heart failure and stage 1 through stage 4 chronic kidney disease, or unspecified chronic kidney disease; N17.9 Acute kidney failure, unspecified; J44.0 Chronic obstructive pulmonary disease with (acute) lower respiratory infection; E87.2 Acidosis; E46 Unspecified protein-calorie malnutrition; Z66 Do not resuscitate; Z51.5 Encounter for palliative care; E78.5 Hyperlipidemia, unspecified; M19.90 Unspecified osteoarthritis, unspecified site; G20 Parkinson's disease; F02.80 Dementia in other diseases classified elsewhere, unspecified severity, without behavioral disturbance, psychotic disturbance, mood disturbance, and anxiety; I50.9 Heart failure, unspecified; I48.91 Unspecified atrial fibrillation; E88.09 Other disorders of plasma-protein metabolism, not elsewhere classified; D63.1 Anemia in chronic kidney disease; D69.6 Thrombocytopenia, unspecified; E86.9 Volume depletion, unspecified; E87.8 Other disorders of electrolyte and fluid balance, not elsewhere classified; N18.9 Chronic kidney disease, unspecified; E86.0 Dehydration; Z95.1 Presence of aortocoronary bypass graft; Z79.899 Other long term (current) drug therapy; Z95.810 Presence of automatic (implantable) cardiac defibrillator; Z91.14 Patient's other noncompliance with medication regimen; Z85.46 Personal history of malignant neoplasm of prostate; Z68.22 Body mass index [BMI] 22.0-22.9, adult
CPT/HCPCS: 36415; 51701; 70450; 71045; 80048; 80053; 80076; 80185; 81003; 81015; 82140; 82550; 82553; 82805; 83605; 83690; 83880; 84443; 84484; 85025; 85060; 87040; 87070; 87077; 87086; 87186; 87205; 93005; 93306; 94002; 94003; 94640; 94760; 96365; 96367; 96372; 96375; J1160; J1650; J1956; J2060; J2250; J2270; J2543; J2704; J2920; J3010; J3475; J3486; J3490; J7620; P9047; S0028